=== PATIENT | male | born 1965 | race Two or more races ===

== ENCOUNTER → 2017-12-17 08:47 | Outpatient (CLI) | payer OTHER, SELFPAY ==
[2017-12-17 08:50] LABS: Microscopic, Urine URINE MICROSCOPIC (MICROSCOPIC)
[2017-12-17 09:06] LABS: Appearance,Urine CLEAR (Clear); Bilirubin,Urine Negative (Negative); Blood, Urine Negative (Negative); Color,Urine YELLOW (Yellow); Glucose,Urine (UA) Negative (Negative); Ketones,Urine Negative (Negative); Leukocyte Esterase,Urine Negative (Negative); Nitrate,Urine Negative (Negative); PH,Urine 7.5 (5.0-8.5); Protein,Urine Negative (Negative); Specific Gravity, Urine 1.015 (1.005-1.030); Urobilinogen,Urine 0.2 EU/dl (0.2)
[2017-12-17 09:10] LABS: Basophils # 0.1 K/mm3 (0-0.2); Basophils % 1.2 % (0.1-2.0); Eosinophils % 17.8 % (0.1-12.0); Hematocrit 49.2 % (42.0-52.0); Hemoglobin 15.2 g/dL (14.1-18.0); Lymphocytes # 1.8 K/mm3 (0.7-4.5); Lymphocytes % 32.3 K/mm3 (10-50); Mean Corpuscular HGB Conc 30.9 g/dL (31.8-35.4); Mean Corpuscular Hemoglobin 29.2 pg (27.0-31.2); Mean Corpuscular Volume 94.4 fl (80-94); Mean Platelet Volume 8.1 fl (7.4-10.4); Monocytes # 0.2 K/mm3 (0.1-1.0); Monocytes % 3.9 % (1.7-9.3); Neutrophils # 2.5 K/mm3 (1.8-7.8); Neutrophils % 44.8 % (37.0-80.0); Platelet Count 173 K/mm3 (142-424); Red Blood Count 5.21 M/mm3 (4.60-6.20); White Blood Count 5.5 K/mm3 (4.8-10.8)
[2017-12-17 09:17] LABS: Bacteria,Urine Trace /lpf; Squamous Epithelial Cell,Urine Occasional #/hpf (0-5); WBC,Urine Occasional #/hpf (0-3)
[2017-12-17 09:30] LABS: Alanine Aminotransferase 32 U/L (12-78); Albumin Level 3.6 gm/dL (3.4-5.0); Albumin/Globulin Ratio 1.2 (1.1-1.8); Alkaline Phosphatase 70 U/L (46-116); Anion Gap 12.5 mEq/L (5-15); Aspartate Amino Transferase 20 U/L (15-37); Bilirubin,Total 0.4 mg/dL (0.2-1.0); Blood Urea Nitrogen 11 mg/dL (7-18); Calcium 8.8 mg/dL (8.5-10.1); Carbon Dioxide 29 mmol/L (21.0-32.0); Chloride 105 mmol/L (98-107); Creatinine,Serum 0.76 mg/dL (0.70-1.30); Estimated Glomerular Filt Rate 107 ml/min (>60); GFR (African American) 129 ML/MIN (>60); Globulin 2.9 gm/dl (1.3-3.2); Glucose 98 mg/dL (74-106); Potassium 4.5 mmoL/L (3.5-5.1); Sodium 142 mmol/L (136-145); Total Protein,Serum 6.5 gm/dL (6.4-8.2)
== END ==
PROVIDERS: Visit Provider Surgery
DX: R10.33 Periumbilical pain (principal)
CPT/HCPCS: 36415; 80053; 81001; 85025

== ENCOUNTER → 2017-12-21 09:21 | Outpatient (CLI) | payer OTHER, SELFPAY ==
--- NOTE | 2017-12-21 09:24 | CT_ITS ---
CT abdomen pelvis w con CLINICAL INDICATION: Mid the left-sided abdominal pain ITS.REASON: abdominal pain ORDERING PHYSICIAN: Walter Hoang MD PATIENT AGE: 52 years COMPARISON: 10/17/2014 TECHNIQUE: Axial images obtained with sagittal and coronal reformats. All CT scans at the facility use one or more dose reduction, viz: automated exposure control; ma/kV adjustment per patient size (including targeted exams where dose is matched to indication; i.e. head); or iterative reconstruction technique. PROCEDURE: Oral Contrast: Redicat IV Contrast: 75 mL's of Isovue-370. FINDINGS: Lung bases are clear. The liver, spleen, adrenal glands, pancreas, and gallbladder have an unremarkable appearance. The gastric wall somewhat thickened at the fundus and body but may be due to nondistention have a somewhat similar appearance on the previous exam. No renal or ureteral calculi or hydronephrosis or renal mass. Unremarkable appendix. No intestinal obstruction or free air. No evidence of diverticulitis No pelvic mass abnormal fluid collection or focal inflammatory change. Prostate is slightly enlarged at 5 cm in transverse dimension with central coarse calcifications there are few scattered small nodes in the mesentery's No acute bony anomalies are evident. There is a long screw extending from the right ilium medially toward the medial aspect of the sacrum on the left bilateral pars defect is present at L5. IMPRESSION: 1. No acute abdominal or pelvic findings. 2. 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
== END ==
PROVIDERS: Visit Provider Surgery
DX: R10.9 Unspecified abdominal pain (principal)
CPT/HCPCS: 74177; Q9967

== ENCOUNTER 2020-08-22 11:00 | Outpatient (RCR) | payer MEDICAID, OTHER, SELFPAY | END 2020-08-22 11:05 | disposition home or self-care (01) | LOC: PT 11:00 | DX: S82.202A Unspecified fracture of shaft of left tibia, initial encounter for closed fracture (principal); S82.201A Unspecified fracture of shaft of right tibia, initial encounter for closed fracture | CPT/HCPCS: 97110; 97112; 97116; 97140; 97163; 97164 ==

== ENCOUNTER 2021-09-14 19:24 | Emergency (ER) | payer OTHER, SELFPAY ==
[2021-09-14 20:15] VITALS: BP 168/98; PULSE 78; RESP 19; TEMP 37; O2SAT 98; BMI 25.5
--- NOTE | 2021-09-14 20:34 | HMH.EDUTC ---
[facility] [place] Disposition Clinical Impression: Cellulitis Qualifiers: Site of cellulitis: extremity Site of cellulitis of extremity: lower extremity Laterality: right Qualified Code(s): L03.115 - Cellulitis of right lower limb Disposition: Home, Self-Care Condition on Discharge: Good Instructions: Cellulitis, Clindamycin Additional Instructions: Watch for worsening signs of infection like fever, chills, body aches and worsening or redness and swelling Take medication as prescribed If any worsening of infection, redness outside the lines go straight to and follow up with Orthopedic Physician that did the surgery Return if needed Straight to ER if any life threatening symptoms Call Orthopedic office and see if you can be seen tomorrow instead of Prescriptions: clindamycin HCL [Cleocin HCl] 300 mg PO Q6H 10 Days #40 cap Transmission Status: Received by [id number] Referrals: Marco Cope MD [Primary Care Provider] - As needed Time of Disposition: 21:23 Medical Decision Making - Ramos Inquiry Pt receiving controlled substance: No Ramos was queried for this patient: No Vital Signs: 09/14/21 20:15 Temperature 98.6 F Temperature Source Oral Pulse Rate [Right Radial] 78 Respiratory Rate 19 Blood Pressure [Right Arm] 168/98 H Blood Pressure Mean [Right Arm] 121 Blood Pressure Source [Right Arm] Automatic Cuff Blood Pressure Position [Right Arm] Sitting 02 Sat by Pulse Oximetry 98 Oxygen Delivery Method Room Air Orders (Tests/Meds): ED MEDICATIONS Discontinued Medications Generic Name Dose Route Start Last Admin Trade Name Tdq PRN Reason Stop Dose Admin Ceftriaxone Sodium 1 gm 09/14/21 20:47 09/14/21 20:50 Ceftriaxone 1gm Vial IM 09/14/21 20:48 1 gm ONCE ONE Administration Clindamycin HCl 300 mg 09/14/21 20:45 09/14/21 20:50 Clindamycin 150mg Capsule PO 09/14/21 20:46 300 mg ONCE ONE Administration Lidocaine HCl 0 ml 09/14/21 20:47 09/14/21 20:50 Lidocaine 1% 5ml Pf Vial IM 09/14/21 20:48 1.5 ml ONCE ONE Administration Medical Decision Narrative: patient able to understand and speak little armenian but used intrepretur to help communicate Discussed with patient and recommended transfer to the ED and patient didnt want to go States that he would like to start on antibiotic and he would follow up with Orthopedic as scheduled he would call tomorrow to see if he could get in quicker Medication discussed with pharmacy [facility] [place] HPI - General Stated complaint: R leg inflamed Time Seen by Provider: 09/14/21 20:35 Mode of Arrival: Ambulatory Source of Information: Patient Limitations: Language Barrier Description of Symptoms (Recalled from Triage Doc. by RN): Pt states that he had surgery on 07/31/2021 at . He has swelling, and hot around incision. HEENT Symptoms (Recalled from RN notes): No Resp Symptoms (Recalled from RN notes): No Skin Symptoms (Recalled from RN notes): Yes MS Symptoms (Recalled from RN notes): No Functional Status (Recalled from RN notes): n/a - History of Present Illness Provider Complaint: Patient able to speak minimal Micronesian used hospital interpretur Patient states that he had surgery on 07/31 at States that it was second surgery he has had on this leg States that he noticed yesterday it was getting warm and red yesterday States that today it was still warm and red and he was worried it may be getting infected States that he is suppose to see Orthopedics on Tue but didnt want to wait that long so he came in to see if he could get started on antibiotics - Related Data Previous Rx's Medication Instructions Recorded clindamycin HCL [Cleocin HCl] 300 mg PO Q6H 10 Days #40 cap 09/14/21 Allergies Allergy/AdvReac Type Severity Reaction Status Date / Time No Known Allergies Allergy Verified 09/14/21 20:19 - Worker's Comp Is this a Worker's Comp case?: No Is this an [facility] Worker's Comp?: No Is this a Emely Wor
[2021-09-14 21:39] VITALS: BP 168/98; PULSE 78; RESP 19; TEMP 37; O2SAT 98
== END 2021-09-14 21:39 | disposition home or self-care (01) ==
PROVIDERS: Emergency Provider Nurse Practitioner; PCP Family Medicine
DX: L03.115 Cellulitis of right lower limb (principal)
CPT/HCPCS: 96372; 99212; G0463; J0696

== ENCOUNTER 2022-01-29 08:00 | Outpatient (RCR) | payer OTHER, SELFPAY | END 2022-01-29 08:05 | disposition home or self-care (01) | LOC: PT 08:00 | DX: S82.201M Unspecified fracture of shaft of right tibia, subsequent encounter for open fracture type I or II with nonunion (principal); S82.401 Unspecified fracture of shaft of right fibula | CPT/HCPCS: 97010; 97014; 97016; 97035; 97110; 97112; 97163; 97164; 97530; 97760; G0283 ==

== ENCOUNTER → 2022-06-03 07:47 | Outpatient (CLI) | payer OTHER, SELFPAY ==
[2022-06-03 08:31] LABS: Blood Urea Nitrogen 13 mg/dl (9-20); Estimated Glomerular Filt Rate 87 ml/min (>60); GFR (African American) 105 ML/MIN (>60)
== END ==
PROVIDERS: PCP Family Medicine; Visit Provider Family Medicine
DX: L03.115 Cellulitis of right lower limb (principal)
CPT/HCPCS: 36415; 82565; 84520

== ENCOUNTER → 2022-06-04 08:43 | Outpatient (CLI) | payer OTHER, SELFPAY ==
--- NOTE | 2022-06-04 08:59 | CT_ITS ---
FINAL REPORT TECHNIQUE: Multiple axial CT sections were performed from the foramen magnum to the vertex. Coronal reformatted images were also obtained. Precontrast and postcontrast injection images were obtained. This study was performed with technique to keep radiation doses as low as reasonably achievable, (ALARA). Individualized dose reduction techniques using automated exposure control or adjustment of mA and/or kV according to the patient size were employed. CLINICAL HISTORY: headache FINDINGS: The ventricles are normal in size. There is no evidence of hemorrhage. No masses are identified. No extra-axial fluid collection is seen. The sinuses are normal. No osseous abnormality is seen on the bone window images. Postcontrast images demonstrate no abnormal enhancement. IMPRESSION: Unremarkable CT of the head with and without contrast. Reviewed, Interpreted and Dictated by Kendrick Moreno MD Transcribed by Mckayla Jj Authenticated and [facility]
== END ==
PROVIDERS: PCP Family Medicine; Visit Provider Family Medicine
DX: R51.9 Headache, unspecified (principal)
CPT/HCPCS: 70470; Q9967

== ENCOUNTER 2022-06-22 08:00 | Outpatient (RCR) | payer OTHER, SELFPAY | END 2022-06-22 08:05 | disposition home or self-care (01) | LOC: PT 08:00 | PROVIDERS: Visit Provider Orthopaedic Surgery Orthopaedic Trauma | DX: M79.604 Pain in right leg (principal) | CPT/HCPCS: 97010; 97014; 97016; 97035; 97110; 97112; 97163; 97164; 97530; G0283 ==

== ENCOUNTER → 2022-09-08 07:07 | Outpatient (CLI) | payer OTHER, SELFPAY ==
[2022-09-08 07:14] LABS: MANUAL DIFFERENTIAL MANUAL DIFFERENTIAL (MANUAL DIFF); Microscopic, Urine URINE MICROSCOPIC (MICROSCOPIC)
[2022-09-08 07:52] LABS: Basophils # 0.1 K/mm3 (0-0.2); Basophils % 1.9 % (0.1-2.0); Eosinophils # 0.3 K/mm3 (0.0-0.4); Eosinophils % 5.5 % (0.1-12.0); Hematocrit 50.5 % (42.0-52.0); Hemoglobin 16.2 g/dL (14.1-18.0); Lymphocytes % 31.9 % (10-50); Mean Corpuscular Hemoglobin 29.9 pg (27.0-31.2); Mean Corpuscular Volume 93.5 fl (80-94); Mean Platelet Volume 8.2 fl (7.4-10.4); Monocytes # 0.3 K/mm3 (0.1-1.0); Monocytes % 4.4 % (1.7-9.3); Neutrophils # 3.5 K/mm3 (1.8-7.8); Neutrophils % 56.4 % (37.0-80.0); Platelet Count 218 K/mm3 (142-424); White Blood Count 6.2 K/mm3 (4.8-10.8)
[2022-09-08 07:56] LABS: Appearance,Urine CLEAR (Clear); Bilirubin,Urine Negative (Negative); Blood, Urine Negative (Negative); Color,Urine YELLOW (Yellow); Glucose,Urine (UA) Negative (Negative); Ketones,Urine Negative (Negative); Leukocyte Esterase,Urine TRACE (Negative); Nitrate,Urine Negative (Negative); PH,Urine 6.5 (5.0-8.5); Protein,Urine Negative (Negative); Specific Gravity, Urine 1.015 (1.005-1.030); Urobilinogen,Urine 0.2 EU/dl (0.2)
[2022-09-08 08:08] LABS: Bacteria,Urine Trace /lpf; Squamous Epithelial Cell,Urine Occasional #/hpf (0-5); WBC,Urine Occasional #/hpf (0-3)
[2022-09-08 08:14] LABS: Chloride 105 mmol/L (98-107)
[2022-09-08 08:15] LABS: Potassium 4.7 mmoL/L (3.5-5.1); Sodium 140 mmol/L (136-145)
[2022-09-08 08:17] LABS: Alanine Aminotransferase 31 U/L (12-78); Alkaline Phosphatase 67 U/L (38-126); Anion Gap 9.7 mEq/L (5-15); Aspartate Amino Transferase 32 U/L (17-59); Bilirubin,Total 0.5 mg/dl (0.2-1.3); Blood Urea Nitrogen 11 mg/dl (9-20); Carbon Dioxide 30 mmol/L (22.0-30.0); Cholesterol 206 mg/dl (140-200); Estimated Glomerular Filt Rate 116 ml/min (>60); GFR (African American) 140 ML/MIN (>60); Glucose 100 mg/dl (74-100); Triglycerides 92 mg/dl (30-150); VLDL Cholesterol 18 mg/dL (0-40)
[2022-09-08 08:18] LABS: Albumin Level 4.3 g/dl (3.5-5.0); Albumin/Globulin Ratio 1.5 (1.1-1.8); Chol/HDL Ratio 3.6 (1-3.5); Globulin 2.9 g/dL (1.3-3.2); HDL Cholesterol 58 mg/dl (40-60); Total Protein,Serum 7.2 g/dl (6.3-8.2)
[2022-09-08 08:21] LABS: Lymphocytes % 34 % (10-50); Monocytes % 2 % (2-9); Neutrophils % 64 % (42-76); Platelet Estimate Normal; RBC Morphology Normal; Total Cells Counted 100
[2022-09-08 08:29] LABS: Direct LDL Cholesterol 126.78 mg/dL (100-129)
[2022-09-08 08:48] LABS: Thyroid Stimulating Hormone 1.82 uIU/mL (0.465-4.68)
[2022-09-08 09:17] LABS: Prostate Specific Ag Screen 0.4 ng/ml (0.0-4.0)
== END ==
PROVIDERS: PCP Family Medicine; Visit Provider Family Medicine
DX: R07.9 Chest pain, unspecified (principal); R51.9 Headache, unspecified; I10 Essential (primary) hypertension; Z12.5 Encounter for screening for malignant neoplasm of prostate
CPT/HCPCS: 36415; 80053; 80061; 81001; 84443; 85007; 85014; 85018; 85048; 85049; G0103

== ENCOUNTER 2022-12-27 15:51 | Emergency (ER) | payer OTHER, SELFPAY ==
[2022-12-27] VITALS (7 sets, daily range): BP systolic 120–164; BP diastolic 76–95; PULSE 54–68; RESP 18–20; TEMP 36.6–36.8; O2SAT 94–99; BMI 34.9
--- NOTE | 2022-12-27 16:48 | ECG_ITS ---
APPROVED REPORT Exam: Resting ECG HR:63 bpm ECG Measurements Heart Rate 63 AXES NJ 158 P 41 QRSd 101 QRS 17 QT 379 T 27 QTc 387 Conclusion SINUS RHYTHM POSSIBLE LATERAL MYOCARDIAL INFARCTION , OF INDETERMINATE AGE [30 ms Q WAVE IN I/aVL/V5/V6] ABNORMAL ECG UNCONFIRMED REPORT Electronically signed by : Karthik Sandoval MD 12/28/2022 20:08:02
--- NOTE | 2022-12-27 17:01 | EXP.UTC ---
Discharge Plan Disposition Patient Disposition: Still a Patient Condition: Fair Prescriptions Prescriptions: No Action ibuprofen [Advil Liqui-Gel] 200 mg capsule 200 mg PO Q6H PRN losartan 50 mg tablet 50 mg PO DAILY Qty: 30 3RF Referrals Follow up/Referrals: Provider,Referral, MD [Primary Care Provider] - See instructions Discharge ED Provider: Pierre Sorenson [facility] [place] General Chief complaint: Chest Pain Stated complaint: High blood pressure Mode of Arrival: Ambulatory Source of Information: Patient Limitations: No Limitations Time Seen by Provider: 12/27/22 16:30 Description of Symptoms (Recalled from Triage Doc. by RN): Patient reports high blood pressure for 5 months and his arms going limp when his blood pressure is elevated. HEENT Symptoms (Recalled from RN notes): No Resp Symptoms (Recalled from RN notes): No Skin Symptoms (Recalled from RN notes): No MS Symptoms (Recalled from RN notes): Yes Functional Status (Recalled from RN notes): wnl History of Present Illness Provider Complaint: Patient is Uzbek speaking and son states that father has been having issues with high blood pressure States that when his blood pressure goes up he has headaches and his arms go limp with fatigue. Patient not able to speak Turkmen and obtained hospital android software engineer to communicate with patient Patient holding hand on chest States that he has been having high blood pressure and he is on Losartan he thinks for headaches, States that he has been having pain in his left chest on and off for weeks States that he had some pain earlier but it has let up now and when his blood pressure goes up he feels funny and his arms feel heavy and head hurts Related Data Home Medications Medication Instructions Recorded Confirmed ibuprofen 200 mg capsule (Advil 200 mg PO Q6H PRN 05/26/22 11/09/22 Liqui-Gel) Previous Rx's Medication Instructions Recorded losartan 50 mg tablet 50 mg PO DAILY #30 tabs 11/09/22 Allergies Allergy/AdvReac Type Severity Reaction Status Date / Time No Known Allergies Allergy Verified 11/09/22 09:45 Worker's Comp Is this a Worker's Comp case?: No [facility] Disclaimer: The information contained in this section may have been updated after the patient was seen, as this information can be updated by other users. Medical History (Updated 11/09/22 @ 10:10 by Brandi Carmela-Fleming, DO) Cellulitis Surgical History History of hip surgery History of surgery on lower extremity Family History Family/Other Family history non-contributory No significant family history Social History Smoking Status: Former smoker quit date: 07/18/05 second hand exposure: No alcohol intake: never counseling provided: none substance use type: denies use current occupational status: employed Travel in the last 8 weeks: None ROS Obtained: Yes All systems reviewed & no additional complaints except as documented and Yes Systems reviewed as appropriate & no additional complaints except as documented Constitutional Constitutional: Reports system reviewed and no additional complaints, except as documented, Reports as per HPI, Reports fatigue and Reports headache(s) ENT Ears, Nose, Mouth, and Throat: Reports system reviewed and no additional complaints, except as documented, Reports as per HPI and Reports headache(s) Cardiovascular Cardiovascular: Reports system reviewed and no additional complaints, except as documented, Reports as per HPI, Reports chest pain (on and off for weeks last episode earlier today eased off for now), Denies edema and Denies lightheadedness Respiratory Respiratory: Reports system reviewed and no additional complaints, except as documented and Reports as per HPI Gastrointestinal Gastrointestingal: Reports system re
--- NOTE | 2022-12-27 17:12 | XR_ITS ---
PROCEDURE INFORMATION: Exam: XR Chest Exam date and time: 12/27/2022 5:26 PM Age: 57 years old Clinical indication: Pain; Angina pectoris; Additional info: Chest pain TECHNIQUE: Imaging protocol: Radiologic exam of the chest. Views: 1 view. COMPARISON: CR XR SHOULDER RT MIN 2V 04/01/2020 07:34 FINDINGS: Lungs: Unremarkable. No consolidation. Pleural spaces: Unremarkable. No pleural effusion. No pneumothorax. Heart/Mediastinum: Unremarkable. No cardiomegaly. Vasculature: Vascular calcifications. Bones/joints: Chronic right humeral deformity. IMPRESSION: No acute findings.
--- NOTE | 2022-12-27 17:23 | PC.NURSE ---
ED MD AT BEDSIDE
[2022-12-27 17:30] LABS: Alanine Aminotransferase 38 U/L (12-78); Albumin Level 4.5 g/dl (3.5-5.0); Albumin/Globulin Ratio 1.4 (1.1-1.8); Alkaline Phosphatase 81 U/L (38-126); Aspartate Amino Transferase 38 U/L (17-59); Basophils # 0.1 K/mm3 (0-0.2); Basophils % 0.7 % (0.1-2.0); Bilirubin,Total 0.4 mg/dl (0.2-1.3); Blood Urea Nitrogen 15 mg/dl (9-20); Carbon Dioxide 30 mmol/L (22.0-30.0); Chloride 100 mmol/L (98-107); Creatinine Clearance Estimated 153 mL/min (50-200); Eosinophils # 0.2 K/mm3 (0.0-0.4); Eosinophils % 3.2 % (0.1-12.0); Estimated Glomerular Filt Rate 115 ml/min (>60); GFR (African American) 140 ML/MIN (>60); Globulin 3.3 g/dL (1.3-3.2); Glucose 103 mg/dl (74-100); Hematocrit 51.9 % (42.0-52.0); Hemoglobin 16.4 g/dL (14.1-18.0); Lymphocytes # 1.9 K/mm3 (0.7-4.5); Lymphocytes % 27.9 % (10-50); Mean Corpuscular HGB Conc 31.5 g/dL (31.8-35.4); Mean Corpuscular Hemoglobin 29.5 pg (27.0-31.2); Mean Corpuscular Volume 93.7 fl (80-94); Mean Platelet Volume 8.6 fl (7.4-10.4); Monocytes # 0.3 K/mm3 (0.1-1.0); Monocytes % 4.5 % (1.7-9.3); Neutrophils # 4.4 K/mm3 (1.8-7.8); Neutrophils % 63.8 % (37.0-80.0); Platelet Count 232 K/mm3 (142-424); Red Blood Count 5.54 M/mm3 (4.60-6.20); Red Cell Distribution Width 13.6 % (11.5-17.5); Sodium 140 mmol/L (136-145); Total Protein,Serum 7.8 g/dl (6.3-8.2); White Blood Count 6.9 K/mm3 (4.8-10.8)
--- NOTE | 2022-12-27 17:30 | PC.NURSE ---
XR AT BEDSIDE
--- NOTE | 2022-12-27 17:30 | HMH.EDGENADL ---
Discharge Plan Disposition Patient Disposition: Home, Self-Care Condition: Fair Prescriptions Prescriptions: No Action ibuprofen [Advil Liqui-Gel] 200 mg capsule 200 mg PO Q6H PRN losartan 50 mg tablet 50 mg PO DAILY Qty: 30 3RF Referrals Follow up/Referrals: Provider,MD Daphne [Primary Care Provider] - See instructions Elias Martinez MD [Staff Physician] - 12/29/22 (Patient with intermittent chest pain for a month heart score equals 2. Patient will need outpatient stress test and echocardiogram) Activity Restrictions/Add. Instructions Additional Instructions/Restrictions: Take a baby aspirin every day Clinical Impressions Clinical Impression: Chest pain Discharge ED Provider: Pierre Sorenson General Adult HPI General Chief complaint: Chest Pain Stated complaint: High blood pressure Time Seen by Provider: 12/27/22 16:30 Mode of Arrival: Ambulatory Source of Information: Patient Limitations: No Limitations Description of Symptoms (Recalled from ER Triage Doc. by RN): Patient reports high blood pressure for 5 months and his arms going limp when his blood pressure is elevated. History of Present Illness HPI narrative: This is a 57-year-old Bhutanese-speaking male who was sent over from the urgent care because of the intermittent left-sided chest pain for the past month. Patient describes the pain as a pressure nonradiating nonprovoked self-limited accompanied by shortness of breath but no nausea vomiting or diaphoresis. Patient states at present he only has a little pain patient denies any orthopnea or pedal edema fevers or chills cough or hemoptysis. Related Data Home Medications Medication Instructions Recorded Confirmed ibuprofen 200 mg capsule (Advil 200 mg PO Q6H PRN 05/26/22 11/09/22 Liqui-Gel) Previous Rx's Medication Instructions Recorded losartan 50 mg tablet 50 mg PO DAILY #30 tabs 11/09/22 Allergies Allergy/AdvReac Type Severity Reaction Status Date / Time No Known Allergies Allergy Verified 11/09/22 09:45 [facility] Disclaimer: The information contained in this section may have been updated after the patient was seen, as this information can be updated by other users. Medical History (Updated 12/27/22 @ 19:34 by Pierre Sorenson MD) Cellulitis Surgical History History of hip surgery History of surgery on lower extremity Family History Family/Other Family history non-contributory No significant family history Social History Smoking Status: Former smoker quit date: 07/18/05 second hand exposure: No alcohol intake: never counseling provided: none substance use type: denies use current occupational status: employed Travel in the last 8 weeks: None ROS Obtained: Yes All systems reviewed & no additional complaints except as documented Skin no rash or lesions HEENT no runny nose sore throat Pulmonary no cough or shortness of breath Cardiovascular see HPI GI no abdominal pain nausea or vomiting no dysuria pyuria hematuria Musculoskeletal no neck or back pain Endocrine no polydipsia polyuria or polyphasia Psych no SI or HI The rest of the systems were reviewed and found to be negative Physical Exam Narrative Physical exam: Skin: Warm and dry HEENT: Normocephalic atraumatic extract muscles are intact pupils are equal and reactive to light Neck: Supple nontender Lungs: Clear to auscultation Heart: Regular rate and rhythm Abdomen: NABS soft nontender Extremities: No clubbing cyanosis or edema Neurologic: No unilateral weakness or numbness Lymphatic: No cervical or inguinal adenopathy Musculoskeletal: No tenderness of the dorsal or lumbar spine Psych: No SI or HI General General appearance: alert and in no apparent distress Respiratory Respiratory exam: Prese
[2022-12-27 17:35] LABS: Activated Partial Thrombo Time 28.2 seconds (22.8-30.6); Prothrombin Time 9.8 seconds (10.1-12.5)
[2022-12-27 17:40] LABS: NT Pro Brain Natriuretic Pep. 30.8 pg/mL (0-125)
--- NOTE | 2022-12-27 17:40 | PC.NURSE ---
ROUNDED ON PT, NO NEEDS AT THIS TIME. TOLERATED NITRO. DENIES CHANGE, HAS NO CHEST PAIN
[2022-12-27 17:48] LABS: Troponin I < 0.01 ng/ml (0.00-0.034)
--- NOTE | 2022-12-27 18:06 | PC.NURSE ---
PT REPOSITIONED IN BED, DENIES CHEST PAIN
--- NOTE | 2022-12-27 19:04 | PC.NURSE ---
Patient assisted to bathroom
== END 2022-12-27 19:42 | disposition home or self-care (01) ==
LOC: UTC 15:58 → ER 17:11
PROVIDERS: Emergency Provider Emergency Medicine
DX: R07.9 Chest pain, unspecified (principal); R06.02 Shortness of breath; Z87.891 Personal history of nicotine dependence
CPT/HCPCS: 71045; 80053; 83880; 84484; 85025; 85610; 85730; 93005; 93041; 99285

== ENCOUNTER 2024-06-01 02:24 | Emergency (ER) | payer SELFPAY ==
[2024-06-01 02:25] VITALS: BP 139/76; PULSE 73; RESP 20; TEMP 36.8; O2SAT 98; BMI 37.8
--- NOTE | 2024-06-01 02:27 | HMH.EDGENADL ---
Discharge Plan Disposition Patient Disposition: Home, Self-Care Prescriptions Prescriptions: New benzonatate 100 mg capsule 100 mg PO Q6H PRN (Reason: cough) Qty: 30 0RF No Action ibuprofen [Advil Liqui-Gel] 200 mg capsule 200 mg PO Q6H PRN albuterol sulfate 90 mcg/actuation HFA aerosol inhaler 2 puff inhalation Q4-6H PRN (Reason: shortness of breath or wheezing) Qty: 8.5 3RF losartan 50 mg tablet 50 mg PO DAILY famotidine 20 mg tablet 20 mg PO DAILY PRN Referrals Follow up/Referrals: Raine Jensen APRN [Primary Care Provider] - See instructions Activity Restrictions/Add. Instructions Additional Instructions/Restrictions: Please take Tessalon Perles as prescribed for cough. Please follow-up with your primary care provider. Please return to the emergency department if you develop any new or worsening symptoms or become concerned for your health. Clinical Impressions Clinical Impression: Cough Print Language Print Language: Turkmen Discharge ED Provider: King Morales General Adult HPI General Chief complaint: Upper Respiratory Infection Stated complaint: coughing, back pain, [place] Time Seen by Provider: 06/01/24 02:27 History of Present Illness HPI narrative: 58-year-old male with history of obesity hypertension hyperlipidemia presents for cough. He reports that he had a cold over the last few days with associated sinus drainage, body aches. These resolved but his cough has remained. He reports it is nonproductive. He sometimes has some back pain when he coughs. Denies any fevers. Reports he is not short of breath. Related Data Home Medications ?Medication ?Instructions ?Recorded ?Confirmed ibuprofen 200 mg capsule (Advil 200 mg PO Q6H PRN 05/26/22 01/09/24 Liqui-Gel) famotidine 20 mg tablet 20 mg PO DAILY PRN 01/09/24 losartan 50 mg tablet 50 mg PO DAILY 01/09/24 Previous Rx's ?Medication ?Instructions ?Recorded albuterol sulfate 90 mcg/actuation 2 puff inhalation Q4-6H PRN 09/26/23 aerosol inhaler shortness of breath or wheezing #8.5 grams benzonatate 100 mg capsule 100 mg PO Q6H PRN cough #30 caps 06/01/24 Allergies Allergy/AdvReac Type Severity Reaction Status Date / Time No Known Allergies Allergy Verified 06/01/24 02:44 PFSH PFSH Disclaimer: The information contained in this section may have been updated after the patient was seen, as this information can be updated by other users. Medical History (Updated 06/01/24 @ 02:50 by King Morales MD) Dysphagia Wheezing Chest pain Cellulitis Surgical History History of hip surgery History of surgery on lower extremity Family History Family/Other Family history non-contributory No significant family history Social History Smoking Status: Former smoker second hand exposure: No alcohol intake: never counseling provided: none substance use type: denies use current occupational status: employed Travel in the last 8 weeks: None Other Medical History Have you received the Flu Vaccine for this season: No Have you received the Pneumonia Vaccine: No ROS Obtained: Yes All systems reviewed & no additional complaints except as documented Physical Exam General General appearance: alert and in no apparent distress Head Head exam: atraumatic and normocephalic Eye Eye exam: Present normal appearance, PERRL and EOMI ENT ENT exam: Present normal oropharynx and normal external ear exam Neck Neck exam: Present normal inspection and full ROM Chest Chest inspection: Present normal inspection and symmetric chest wall rise; Absent tenderness Respiratory Respiratory exam: Present normal lung sounds bilaterally; Absent respiratory distress Cardiovascular Cardiovascular exam: Present regular rate and normal rhythm Abdominal Exam Abdominal exam: Present soft; Absent distention, tenderness or guarding Extremities Exam Extremities exam: Present normal inspection; Absent edema or joint swelling Back Exam Back exam: Present normal inspection; Absent tenderness Neurological Exam Neurological exam: Present alert and oriented X3; Absent motor sensory deficit Psychiatric Psychiatric exam: Present normal affect and normal mood Skin Skin exam: Present warm, dry and normal color Lymphatic Lymphatic Findings: no adenopathy Medical Decision Making Medical Records Medical records reviewed: Yes I reviewed the patient's medical records. Screening: Per USPSTF and CDC recommendations, given the prevalence of disease in our region, it is our hospital?s policy to screen for HIV and viral Hepatitis for all patients aged 18 and over and those with ongoing risk factors. Ramos Inquiry Pt receiving controlled substance: No Ramos was queried for this patient: No Vital Signs: 06/01/24 02:25 06/01/24 03:11 Temperature 98.2 F 98.2 F Temperature Source Oral Oral Pulse Rate 74 Pulse Rate [Left Radial] 73 Respiratory Rate 20 20 Blood Pressure 136/78 Blood Pressure [Right Arm] 139/76 Blood Pressure Mean [Right Arm] 97 Blood Pressure Source Automatic Cuff Blood Pressure Source [Right Arm] Automatic Cuff Blood Pressure Position Sitting Blood Pressure Position [Right Arm] Sitting 02 Sat by Pulse Oximetry 98 Oxygen Delivery Method Room Air Room Air Lab Data Lab results reviewed: Yes I reviewed the patient's lab results. Orders (Tests/Meds): ED MEDICATIONS Discontinued Medications Generic Name Dose Route Start Last Admin Trade Name Freq PRN Reason Stop Dose Admin Benzonatate 100 mg 06/01/24 02:48 06/01/24 03:02 Benzonatate 100mg Capsule PO 06/01/24 02:49 100 mg ONCE ONE Administration ORDERS Category Date Time Status CXR 2 view (NOT portable) [XR chest 2V] Stat Exams 06/01/24 02:31 Taken Medical Decision Narrative: 58-year-old male with history of hypertension hyperlipidemia and obesity presents for persistent dry cough over the last few days after having a upper respiratory infection.. History was obtained via interactive discussion with patient, family. On arrival, patient is [afebrile, hemodynamically stable, satting appropriately, alert, oriented x4, GCS 15], moving all extremities spontaneously. Full physical exam performed and significant for clear lungs bilaterally Differential includes but is not limited to postviral cough, asthma, pneumonia. Patient was given Tessalon Perle for symptomatic management and correction of underlying abnormalities. Workup initiated including 2 view chest x-ray. On re-evaluation, patient [remains afebrile, HD stable.] Imaging independently interpreted by me and significant for clear lungs bilaterally without focal opacity. See radiology read for full review of final results. Given patient history, exam and workup, patient's presentation most likely represents postviral cough. No evidence of bacterial infection at this time. Patient was discharged in stable condition with return precautions and with prescription for Tessalon Perles. Procedures Risk/Benefits of Procedure(s) Were Explained: Yes Critical Care Critical Care Time Critical Care Time: No
--- NOTE | 2024-06-01 02:31 | XR_ITS ---
PROCEDURE INFORMATION: Exam: XR Chest Exam date and time: 06/01/2024 2:34 AM Age: 58 years old Clinical indication: Cough TECHNIQUE: Imaging protocol: Radiologic exam of the chest. Views: 2 views. COMPARISON: No relevant prior studies available. FINDINGS: Lungs: Unremarkable. No consolidation. Pleural spaces: Unremarkable. No pleural effusion. No pneumothorax. Heart/Mediastinum: Unremarkable. No cardiomegaly. Bones/joints: Unremarkable. IMPRESSION: No acute findings.
--- NOTE | 2024-06-01 02:43 | PC.NURSE ---
Pt ambulatory to xray
[2024-06-01] MEDS: BENZONATATE 100MG CAPSULE 100 MG PO (03:02)
[2024-06-01 03:11] VITALS: BP 136/78; PULSE 74; RESP 20; TEMP 36.8; O2SAT 98
== END 2024-06-01 03:13 | disposition home or self-care (01) ==
PROVIDERS: Emergency Provider Emergency Medicine; PCP Nurse Practitioner Family
DX: R05.9 Cough, unspecified (principal)
CPT/HCPCS: 71046; 99283

== ENCOUNTER 2025-04-29 07:03 | Outpatient (CLI) | payer SELFPAY ==
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
--- NOTE | 2025-04-29 07:10 | CT_ITS ---
FINAL REPORT TECHNIQUE: Thin section axial images were obtained through the lungs using a low-dose technique per lung cancer screening protocol. Reconstruction images were obtained using the axial data. Exam was performed using dose reduction technique. CLINICAL HISTORY: SCREENING former smoker quit 19 years ago 1ppd x27 years FINDINGS: CTDLvol: 2.90 DLP: 100.03 Former smoker 27 pack year history Lungs: No acute pulmonary abnormality. There is a cluster of small nodular opacities in the right lower lobe. Largest nodule within this cluster measures 6 mm. Findings are favored to be infectious or inflammatory. There is also a nodule along the right minor fissure measuring 5 mm, likely an intrafissural lymph node at the right minor fissure. Lymph nodes: No thoracic lymphadenopathy. Mediastinum: Heart size is normal. Pleura/pericardium: No pleural or pericardial effusion. Other: No acute abnormality in the upper abdomen. IMPRESSION: Cluster of nodules in the right lower lobe, favor infectious/inflammatory. Nodule at the right minor fissure likely representing an intrafissural lymph node. Lung RADS: 0 Recommendation: Consider 3-month follow-up. Reviewed, Interpreted and Dictated by Amparo Amezcua MD Transcribed by Lida Coon Authenticated and [facility]
== END 2025-04-29 23:59 | disposition home or self-care (01) ==
PROVIDERS: PCP Nurse Practitioner Family; Visit Provider Nurse Practitioner Family
DX: Z12.2 Encounter for screening for malignant neoplasm of respiratory organs (principal); Z87.891 Personal history of nicotine dependence; R91.8 Other nonspecific abnormal finding of lung field
CPT/HCPCS: 71271